=== PATIENT | female | born 1970 | race Caucasian/White ===

== ENCOUNTER 2018-06-05 08:16 | Emergency (ER) | payer BC ==
--- NOTE | 2018-06-05 08:40 | EDM.PDOC ---
ED HPI GENERAL MEDICAL PROBLEM - General Chief Complaint: Abdominal Pain Stated Complaint: LOWER ABDONMINAL PAIN [id number] Time Seen by Provider: 06/05/18 08:40 Source of Information: Reports: Patient, RN, RN Notes Reviewed History Limitations: Reports: No Limitations - History of Present Illness INITIAL COMMENTS - FREE TEXT/NARRATIVE: Pt to ER with c/o severe abdominal pain that began about 0100. She states she thought it was gas, took gas ex without relief. She states the pain is stabbing. She admits to N/V/D. She admits to chills, but is unsure if she has had a fever. Patient denies urinary symptoms. States she has frequency, but that is common for her, denies burning with urination. States she has an IUD. 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 SCIENCE TAXONOMIST: Reports: Other (see below) Other Treatments LIFE SCIENCE TAXONOMIST: gas ex Abdominal Pain Score (Numeric/FACES): 9 - Related Data Allergies Allergy/AdvReac Type Severity Reaction Status Date / Time No Known Allergies Allergy Verified 06/05/18 08:34 Home Meds: Home Meds Acetaminophen [Tylenol Extra Strength] 500 mg PO Q6H PRN 06/05/18 [History] Ibuprofen 200 mg PO Q6H PRN 06/05/18 [History] Past Medical History HEENT History: Reports: None Cardiovascular History: Reports: None Respiratory History: Reports: None Gastrointestinal History: Reports: None Genitourinary History: Reports: None 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: Musculoskeletal History: Reports: None Neurological History: Reports: None Psychiatric History: Reports: None Endocrine/Metabolic History: Reports: None Hematologic History: Reports: None Immunologic History: Reports: None Oncologic (Cancer) History: Reports: None Dermatologic History: Reports: None - Infectious Disease History Infectious Disease History: Reports: None - Past Surgical History HEENT Surgical History: Reports: None Cardiovascular Surgical History: Reports: None Respiratory Surgical History: Reports: None GI Surgical History: Reports: None Female Surgical History: Reports: Other (See Below) Other Female Surgeries/Procedures: IUD present Endocrine Surgical History: Reports: None Musculoskeletal Surgical History: Reports: None Social & Family History - Family History Family Medical History: Noncontributory ED ROS GENERAL - Review of Systems Review Of Systems: ROS reveals no pertinent complaints other than HPI. ED EXAM, GI/ABD - Physical Exam Exam: See Below Exam Limited By: No Limitations General Appearance: Alert, WD/WN, Moderate Distress Eyes: Bilateral: Normal Appearance, EOMI Ears: Normal External Exam, Hearing Grossly Normal Nose: Normal Inspection Throat/Mouth: Normal Inspection, Normal Voice, No Airway Compromise Head: Atraumatic, Normocephalic Neck: Normal Inspection, Supple, Non-Tender, Full Range of Motion Respiratory/Chest: No Respiratory Distress, Lungs Clear, Normal Breath Sounds, No Accessory Muscle Use, Chest Non-Tender Cardiovascular: Normal Peripheral Pulses, Regular Rate, Rhythm, No Edema, No Gallop, No JVD, No Murmur, No Rub GI/Abdominal Exam: Normal Bowel Sounds, Soft, Guarding, Tender (diffuse) (Female) Exam: Deferred Rectal (Female) Exam: Deferred Back Exam: Normal Inspection, Full Range of Motion. No: CVA Tenderness (L), CVA Tenderness (R) Extremities: Normal Inspection, Normal Range of Motion, Non-Tender, No Pedal Edema, Normal Capillary Refill Neurological: Alert, Oriented, CN II-XII Intact, Normal Cognition, Normal Gait, Normal Reflexes, No Motor/Sensory Deficits Psychiatric: Anxious, Tearful Skin Exam: Warm, Dry, Intact, Normal Color, No Rash Lymphatic: No Adenopathy Course - Vital Signs Last Recorded V/S: Last Vital Signs Temp 97.8 F 06/05/18 08:28 Pulse 106 H 06/05/18 08:28 Resp 16 06/05/18 08:28 BP 131/84 06/05/18 08:28 Pulse Ox 96 06/05/18 08:28 - Orders/Labs/Meds Labs: Laboratory Tests 06/05/18 06/05/18 06/05/18 Range/Units 08:35 08:35 08:35 WBC 17.4 H (5.0-10.0) 10^3/uL RBC 4.93 (4.2-5.4) 10^6/uL Hgb 14.4 (12.0-16.0) g/dL Hct 42.5 (37.0-47.0) % MCV 86.2 (80-100) fL MCH 29.2 (27.0-34.0) pg MCHC 33.9 (33.0-35.0) g/dL Plt Count 241 (150-450) 10^3/uL Neut % (Auto) 89.6 H (42.2-75.2) % Lymph % (Auto) 6.2 L (20.5-50.1) % Love % (Auto) 4.1 (2-8) % Eos % (Auto) 0.0 L (1.0-3.0) % Baso % (Auto) 0.1 (0.0-1.0) % Sodium 133 L (135-145) mmol/L Potassium 3.7 (3.6-5.0) mmol/L Chloride 99 L (101-111) mmol/L Carbon Dioxide 22.0 (21.0-31.0) mmol/L Anion Gap 15.7 BUN 15 (7-18) mg/dL Creatinine 0.8 (0.6-1.3) mg/dL Est Cr Clr Drug Dosing 63.79 mL/min Estimated GFR (MDRD) > 60 BUN/Creatinine Ratio 18.75 Glucose 124 H (74-105) mg/dL Lactic Acid 1.6 (0.5-2.2) mmol/L Calcium 9.4 (8.4-10.2) mg/dl Total Bilirubin 0.8 (0.2-1.0) mg/dL AST 25 (10-42) IU/L ALT 12 (10-60) IU/L Alkaline Phosphatase 56 (42-121) IU/L Total Protein 7.9 (6.7-8.2) g/dl Albumin 4.6 (3.2-5.5) g/dl Globulin 3.3 Albumin/Globulin Ratio 1.39 Urine Color (YELLOW) Urine Appearance (CLEAR) Urine pH (5.0-9.0) Ur Specific [place] (1.005-1.030) Urine Protein (NEGATIVE) Urine Glucose (UA) (NEGATIVE) Urine Ketones (NEGATIVE) Urine Occult Blood (NEGATIVE) Urine Nitrite (NEGATIVE) Urine Bilirubin (NEGATIVE) Urine Urobilinogen (0.2-1.0) mg/dL Ur Leukocyte Esterase (NEGATIVE) Urine RBC /HPF Urine WBC (0-5/HPF) /HPF Ur Epithelial Cells /HPF Urine Bacteria (0-FEW/HPF) /HPF Urine Mucus /LPF Urine HCG, Qual 06/05/18 06/05/18 Range/Units 08:49 08:49 WBC (5.0-10.0) 10^3/uL RBC (4.2-5.4) 10^6/uL Hgb (12.0-16.0) g/dL Hct (37.0-47.0) % MCV (80-100) fL MCH (27.0-34.0) pg MCHC (33.0-35.0) g/dL Plt Count (150-450) 10^3/uL Neut % (Auto) (42.2-75.2) % Lymph % (Auto) (20.5-50.1) % Love % (Auto) (2-8) % Eos % (Auto) (1.0-3.0) % Baso % (Auto) (0.0-1.0) % Sodium (135-145) mmol/L Potassium (3.6-5.0) mmol/L Chloride (101-111) mmol/L Carbon Dioxide (21.0-31.0) mmol/L Anion Gap BUN (7-18) mg/dL Creatinine (0.6-1.3) mg/dL Est Cr Clr Drug Dosing mL/min Estimated GFR (MDRD) BUN/Creatinine Ratio Glucose (74-105) mg/dL Lactic Acid (0.5-2.2) mmol/L Calcium (8.4-10.2) mg/dl Total Bilirubin (0.2-1.0) mg/dL AST (10-42) IU/L ALT (10-60) IU/L Alkaline Phosphatase (42-121) IU/L Total Protein (6.7-8.2) g/dl Albumin (3.2-5.5) g/dl Globulin Albumin/Globulin Ratio Urine Color Yellow (YELLOW) Urine Appearance Clear (CLEAR) Urine pH 8.5 (5.0-9.0) Ur Specific [place] 1.015 (1.005-1.030) Urine Protein 100 H (NEGATIVE) Urine Glucose (UA) Negative (NEGATIVE) Urine Ketones 15 H (NEGATIVE) Urine Occult Blood Negative (NEGATIVE) Urine Nitrite Negative (NEGATIVE) Urine Bilirubin Negative (NEGATIVE) Urine Urobilinogen 0.2 (0.2-1.0) mg/dL Ur Leukocyte Esterase Negative (NEGATIVE) Urine RBC 0-5 /HPF Urine WBC 0-5 (0-5/HPF) /HPF Ur Epithelial Cells Many H /HPF Urine Bacteria Few (0-FEW/HPF) /HPF Urine Mucus Moderate H /LPF Urine HCG, Qual Negative Meds: Medications Discontinued Medications Generic Name Dose Route Start Last Admin Trade Name Rani PRN Reason Stop Dose Admin Hydromorphone HCl 1 mg 06/05/18 09:44 06/05/18 09:48 Dilaudid IVPUSH 06/05/18 09:45 1 mg ONETIME ONE Administration Sodium Chloride 1,000 mls @ 999 mls/hr 06/05/18 08:59 06/05/18 09:04 Normal Saline IV 06/05/18 09:59 999 mls/hr .BOLUS ONE Administration Iopamidol 75 ml 06/05/18 09:09 06/05/18 09:33 Isovue-300 (61%) IVPUSH 06/05/18 09:10 75 ml ONETIME ONE Administration Ondansetron HCl 4 mg 06/05/18 08:59 06/05/18 09:05 Zofran IV 06/05/18 09:00 4 mg ONETIME ONE Administration - Radiology Interpretation Free Text/Narrative:: CT Abdomen/Pelvis with contrast: IUD. No acute intraperitoneal inflammation or other abnormality. Lung bases clear. See rad report Departure - Departure Time of Disposition: 10:39 Disposition: Home, Self-Care 01 Condition: Fair Clinical Impression: Gastroenteritis, Bacterial vaginosis Abdominal pain Qualifiers: Abdominal location: generalized Qualified Code(s): R10.84 - Generalized abdominal pain Diarrhea Qualifiers: Diarrhea type: unspecified type Qualified Code(s): R19.7 - Diarrhea, unspecified Vomiting Qualifiers: Vomiting type: unspecified Vomiting Intractability: non-intractable Nausea presence: with nausea Qualified Code(s): R11.2 - Nausea with vomiting, unspecified - Discharge Information *PRESCRIPTION DRUG MONITORING PROGRAM REVIEWED*: No *COPY OF PRESCRIPTION DRUG MONITORING REPORT IN PATIENT ARMANDO: No Instructions: Vaginitis, [id number], Viral Gastroenteritis, Adult, Easy-to- Read, Food Choices to Help Relieve Diarrhea, Adult, Abdominal Pain, Adult, Easy- to-Read Forms: ED Department Discharge Additional Instructions: May use Tylenol and/or ibuprofen as directed for pain RX: Zofran, Metronidazole May use imodium as directed for diarrhea Drink small sips frequently Rest Follow up with your primary care facility
[2018-06-05] MEDS ORDERED: Ondansetron 4 MG/2 ML SDV IV ONE (08:59)
[2018-06-05] MEDS ORDERED: Sodium Chloride 0.9% 1,000 ML IV ONE (08:59)
[2018-06-05 09:05] LABS: ANION GAP 15.7; CHLORIDE,CL 99 mmol/L (101-111); SODIUM,NA 133 mmol/L (135-145)
[2018-06-05] MEDS ORDERED: Iopamidol 612 MG/ML 75 ML Bottle IVPUSH ONE (09:09)
[2018-06-05] MEDS ORDERED: HYDROmorphone 1 MG/ML Syringe IVPUSH ONE (09:44)
--- NOTE | 2018-06-05 09:54 | CT ---
Clinical history: 47-year-old 150 pound female in ER with "severe" lower abdominal pain (white blood cell count 17,400). Scan technique: Emergency volume acquisition of data from the abdomen and pelvis obtained without oral contrast but during the intravenous infusion of 75 cc nonionic Isovue contrast while patient was lying supine on the Siemens multi slice scanner [place], [place]. All data archived in the PACS system for storage, reformatting axial/sagittal/coronal planes and study. Interpretation: 1. Metallic high density material (Pepto-Bismol) stomach and duodenum. No sign of mechanical bowel obstruction. 2. IUD midline anteverted uterus. 15 mm cyst left ovary. No pelvic or abdominal mass lesion; no pelvic, mesenteric or retroperitoneal lymphadenopathy; no inflammatory "dirty" peritoneal fat, mechanical bowel obstruction, ascites or free air. 3. The appendix RLQ measures 6.9 mm in diameter, lies across the ipsilateral psoas muscle with solitary tiny appendicolith. No periappendiceal inflammatory "dirty" fat, RLQ abscess, or signs of mechanical small bowel obstruction i.e. negative. 4. No ventral wall or inguinal hernia. 5. Gallbladder, liver, spleen, pancreas and adrenal glands unremarkable. Normal reniform size, axis, configuration bilaterally. No cortical mass or inflammation. No sign of nephrolithiasis or obstructive uropathy. Incompletely filled normal urinary bladder. 6. Normal caliber aortoiliac vessels. A bar spine unremarkable. Lung bases clear. CONCLUSION: IUD. No acute intraperitoneal inflammation or other abnormality. Lung bases clear.
== END 2018-06-05 10:55 | disposition home or self-care (01) ==
LOC: DL.ED 08:16
DX: K52.9 Noninfective gastroenteritis and colitis, unspecified (principal)
CPT/HCPCS: 36415; 74177; 80053; 81001; 81025; 83605; 85025; 96361; 96374; 96375; 99284; J1170; J2405; J7030; Q9967

== ENCOUNTER 2023-06-01 14:40 | Emergency (ER) | payer BC ==
[2023-06-01] MEDS ORDERED: Take Home: Amoxicillin/Clavulanate K 875-125 MG Tab, 6 Tab Pack PO ONE (16:56)
[2023-06-01 17:16] LABS: BASOPHILS PERCENT AUTO 0.2 % (0.0-1.0); HEMATOCRIT 40.6 % (37.0-47.0); HEMOGLOBIN 13.5 g/dL (12.0-16.0); LYMPHOCYTES PERCENT AUTO 34.1 % (20.5-50.1); MEAN CORPUSCULAR HEMOGLOBIN 29.3 pg (27.0-34.0); MEAN CORPUSCULAR HGB CONC 33.3 g/dL (33.0-35.0); MEAN CORPUSCULAR VOLUME 88.3 fL (80-100); MONOCYTES PERCENT AUTO 8.2 % (2-8); NEUTROPHILS PERCENT AUTO 54.5 % (42.2-75.2); PLATELET COUNT,PLT 192 10^3/uL (150-450); WHITE BLOOD CELL COUNT,WBC 9.5 10^3/uL (5.0-10.0)
[2023-06-01] MEDS: Amoxicillin/Clavulanate K 875-125 MG Tab PO ONE ×3 (17:20→17:22)
[2023-06-01] MEDS: Sodium Chloride 0.9% 10 ML Syringe FLUSH PRN (17:22)
[2023-06-01 17:23] LABS: HCG QUALITATIVE,SERUM NEGATIVE (NEGATIVE)
[2023-06-01] MEDS: Iopamidol 612 MG/ML 100 ML Bottle IVPUSH ONE (17:33)
[2023-06-01 17:37] LABS: A/G RATIO 1.3; ALANINE AMINOTRANSFERASE,ALT 13 U/L (14-59); ALBUMIN 3.9 g/dL (3.4-5.0); ALKALINE PHOSPHATASE 60 U/L (46-116); ANION GAP 19.8 mEq/L (7-13); ASPARTATE AMNIOTRANSFERASE,AST 14 U/L (15-37); BILIRUBIN TOTAL 0.2 mg/dL (0.2-1.0); BLOOD UREA NITROGEN,BUN 18 mg/dL (7-18); BUN/CREATININE RATIO 20.7 (No establ ref range); C-REACTIVE PROTEIN < 0.50 ng/dL (<=0.50); CALCIUM 8.8 mg/dL (8.5-10.1); CARBON DIOXIDE,CO2 23 mmol/L (21-32); CHLORIDE,CL 104 mmol/L (98-107); CREATININE 0.87 mg/dL (0.55-1.02); EST CRCL DRUG DOSING (CG) 55.57 mL/min; ESTIMATED GFR 81 mL/min (>=60); GLUCOSE RANDOM 96 mg/dL (70-99); LACTATE DEHYDROGENASE,LDH 166 U/L (81-234); POTASSIUM,K 3.8 mmol/L (3.5-5.1); PROTEIN TOTAL,TP 6.9 g/dL (6.4-8.2); SODIUM,NA 143 mmol/L (136-145)
== END 2023-06-01 18:59 | disposition home or self-care (01) ==
LOC: DL.ED 14:40
DX: K11.20 Sialoadenitis, unspecified (principal)
CPT/HCPCS: 36415; 71260; 80053; 83615; 84703; 85025; 86140; 99283; 99284; A9270; Q9967; J3490